=== PATIENT | male | born 1980 | race American Indian/Alaskan Native ===

== ENCOUNTER 2016-10-12 08:07 | Emergency (ER) | payer MEDICAID ==
[2016-10-12 08:40] VITALS: BP 151/104
[2016-10-12] MEDS ORDERED: TORADOL IM ONE (11:04)
--- NOTE | 2016-10-12 11:09 | Emergency Department Report ---
HPI - General Chief Complaint: Neck Pain/Injury Time Seen by Provider: 10/12/16 11:04 - HPI HPI: 36-year-old obese -Honduran male comes in with complaint of neck pain and lower back pain 2-3 days. Patient voices and using Motrin and heat with minimal relief. Patient reports that he is out of his meds which her trauma and all which has really helped in the past. Patient reports that he is waiting for an appointment at the pain clinic he has been following up with his primary care provider and they're looking to refer him in 2 months to a pain management. 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 He denies any trauma to his back. He reports is not able to sleep much. He is aware that his blood pressure is elevated today but reports he's been taken his lisinopril and amlodipine and contributes to elevation due to pain. ED Past Medical Hx - Past Medical History Hx Hypertension: Yes Additional medical history: MORBID OBESITY. CHRONIC PAIN - Surgical History Past Surgical History?: No - Social History Smoking Status: Former Smoker Substance Use Type: Prescribed - Medications Home Medications: Home Medications Medication Instructions Recorded Confirmed Last Taken Type methOCARBAMOL [Robaxin TAB] 500 mg PO BID #30 tab 10/12/16 Unknown Rx traMADol [Ultram 50 MG tab] 50 mg PO Q6HR PRN #28 tablet 10/12/16 Unknown Rx ED Review of Systems ROS: Stated complaint: BACK/NECK PAIN Other details as noted in HPI Constitutional: denies: chills, fever Eyes: denies: eye pain, eye discharge, vision change ENT: denies: ear pain, throat pain Respiratory: denies: cough, shortness of breath, wheezing Cardiovascular: denies: chest pain, palpitations Endocrine: no symptoms reported Gastrointestinal: denies: abdominal pain, nausea, diarrhea Genitourinary: denies: urgency, dysuria Musculoskeletal: back pain, arthralgia, myalgia Skin: denies: rash, lesions Neurological: denies: headache, weakness, paresthesias Psychiatric: denies: anxiety, depression Hematological/Lymphatic: denies: easy bleeding, easy bruising Physical Exam - Physical Exam Vital Signs: Vital Signs 10/12/16 08:36 Temperature 98.3 F Pulse Rate 66 Respiratory 17 Rate Blood Pressure 151/104 O2 Sat by Pulse 100 Oximetry Physical Exam: GENERAL: Alert and oriented x3, no apparent distress, Normal Gait, atraumatic. HEAD: Head is normocephalic and a-traumatic. EYES: Extra ocular muscles are intact. Pupils are equal, round, and reactive to light and accommodation. MOUTH:Mouth is well hydrated and without lesions. Tonsils nonerythematous or swollen, Uvula midline, Tongue not elevated. Mucous membranes are moist. Posterior pharynx clear, no exudate or lesions. Patent airways. NECK: Supple. Non edematous, No carotid bruits. No lymphadenopathy or thyromegaly. Tenderness to the paracervical area LUNGS: Symetrical with respiration, No wheezing, no rales or crackles, CTAB. HEART: S1, S2 present, regular rate and rhythm without murmur, no rubs, no gallops. ABDOMEN: Obese abdomen No organomegaly was noted,Positive bowel sounds, soft, and non-distended. . Nontender to palpation on all Quadrants, NO CVA tenderness. EXTREMITIES/MUSCULOSKELETAL: No cyanosis, clubbing, rash, lesions or edema. Full ROM bilaterally. UE/LE Pulses 2+ bilaterally. LE and UE 5+ strength bilaterally lumbar paraspinal tenderness with muscle spasms. NEUROLOGIC: No focal Deficit, Cranial nerves II through XII are grossly intact. No loss of sensation, No facial droop, PSYCHIATRIC: Mood is congruent with affect, denies suicidal or homicidal ideations. SKIN: Warm and dry, No lesions, No ulceration or induration present ED Course Vital Signs 10/12/16 08:36 Temperature 98.3 F Pulse Rate 66 Respiratory 17 Rate Blood Pressure 151/104 O2 Sat by Pulse 100 Oximetry - Reevaluation(s) Reevaluation #1: 10/12/16 11:40 Patient reports that he feels much better after having the Toradol injection ED Medical Decision Making - Medical Decision Making Patient has been evaluated by this provider in fast track. Discussed the patient will give him a Toradol injection. Encouraged him to continue with his blood pressure medication we would discharge patient on tramadol 50 mg 1 tablet by mouth 3 times a day we'll dispense 15. We will refer patient to pain management. Critical care attestation.: If time is entered above; I have spent that time in minutes in the direct care of this critically ill patient, excluding procedure time. ED Disposition Clinical Impression: Back pain at L4-L5 level, Cervicalgia Disposition: DISCHARGED TO HOME OR SELFCARE Is pt being admited?: No Does the pt Need Aspirin: No Condition: Stable Instructions: Cervical Sprain (ED), Chronic Back Pain (ED) Additional Instructions: He is take pain medication as prescribed. I highly recommend free to follow-up with one of the pain clinic that I have listed below for further management of her chronic back pain. I would discharge also on a muscle relaxant to see if that alleviates some of the pain. Prescriptions: methOCARBAMOL [Robaxin TAB] 500 mg PO BID #30 tab traMADol [Ultram 50 MG tab] 50 mg PO Q6HR PRN #28 tablet PRN Reason: Pain Referrals: PRIMARY CARE [Primary Care Provider] - 3-5 Days PAIN CARE, [facility] [Provider Group] - 3-5 Days PAIN SPECIALIST [facility] [Provider Group] - 3-5 Days Forms: Work/School Release Form(ED)
== END 2016-10-12 11:47 | disposition home or self-care (01) ==
LOC: ED 08:07
DX: M54.5 Low back pain (principal); M54.2 Cervicalgia; I10 Essential (primary) hypertension; G89.29 Other chronic pain; Z87.891 Personal history of nicotine dependence
CPT/HCPCS: 96372; 99282; J1885

== ENCOUNTER 2020-05-27 13:50 | Emergency (ER) | payer MEDICAID ==
[2020-05-27] MEDS ORDERED: LISINOPRIL 20 MG TAB PO ONE (16:17)
[2020-05-27] MEDS ORDERED: amLODIPine 5 MG TAB PO ONE (16:17)
[2020-05-27] MEDS ORDERED: traMADol 50 MG TAB PO ONE (16:17)
[2020-05-27] MEDS ORDERED: ACETAMINOPHEN 325 MG TAB PO ONE (16:17)
--- NOTE | 2020-05-27 17:09 | Emergency Department Report ---
ED Fall HPI - General Chief Complaint: Fall Stated Complaint: BACK PAIN Time Seen by Provider: 05/27/20 16:16 Source: patient Mode of arrival: Ambulatory - History of Present Illness Initial Comments: Patient is a 39-year-old male presents emergency room complaints of a fall that occurred just prior to arrival. Patient states that he was at work on a [employer] picker and fell off of it. He states he was approximately 3 feet off the ground. He states that he did hit his head and had a very brief episode of loss of consciousness. He is complaining of headache, neck pain, middle back pain, lower back pain. He denies any vomiting, vision changes, numbness, weakness, bowel or bladder incontinence. He has a past medical history of hypertension taking his medications in 2 weeks. He is supposed to be taking lisinopril hydrochlorothiazide and amlodipine and has not taken either one in two weeks. He denies any medication allergies. - Related Data Previous Rx's Medication Instructions Recorded Last Taken Type methOCARBAMOL [Robaxin TAB] 500 mg PO BID #30 tab 10/12/16 Unknown Rx traMADoL [Ultram 50 MG tab] 50 mg PO Q6HR PRN #28 tablet 10/12/16 Unknown Rx Acetaminophen [Tylenol] 650 mg PO Q8HR PRN #20 capsule 05/27/20 Unknown Rx Lisinopril/Hydrochlorothiazide 1 tab PO QDAY #30 tab 05/27/20 Unknown Rx [Zestoretic 20-12.5 mg] amLODIPine 10 mg PO DAILY #30 tab 05/27/20 Unknown Rx methOCARBAMOL [Robaxin TAB] 500 mg PO BID PRN #14 tablet 05/27/20 Unknown Rx Allergies Allergy/AdvReac Type Severity Reaction Status Date / Time mushroom Allergy Swelling Verified 10/12/16 08:34 MAYONAISE AdvReac Rash Uncoded 10/12/16 08:34 ED Review of Systems ROS: Stated complaint: BACK PAIN Other details as noted in HPI Comment: All other systems reviewed and negative ED Past Medical Hx - Past Medical History Previous Medical History?: Yes Hx Hypertension: Yes Additional medical history: MORBID OBESITY. CHRONIC PAIN - Surgical History Past Surgical History?: Yes Hx Cholecystectomy: Yes - Social History Smoking Status: Former Smoker Substance Use Type: Prescribed - Medications Home Medications: Home Medications Medication Instructions Recorded Confirmed Last Taken Type methOCARBAMOL [Robaxin TAB] 500 mg PO BID #30 tab 10/12/16 Unknown Rx traMADoL [Ultram 50 MG tab] 50 mg PO Q6HR PRN #28 tablet 10/12/16 Unknown Rx Acetaminophen [Tylenol] 650 mg PO Q8HR PRN #20 capsule 05/27/20 Unknown Rx Lisinopril/Hydrochlorothiazide 1 tab PO QDAY #30 tab 05/27/20 Unknown Rx [Zestoretic 20-12.5 mg] amLODIPine 10 mg PO DAILY #30 tab 05/27/20 Unknown Rx methOCARBAMOL [Robaxin TAB] 500 mg PO BID PRN #14 tablet 05/27/20 Unknown Rx ED Physical Exam - General Limitations: No Limitations General appearance: alert, in no apparent distress - Head Head exam: Present: atraumatic, normocephalic - Eye Eye exam: Present: normal appearance, PERRL, EOMI. Absent: periorbital swelling, periorbital tenderness Pupils: Present: normal accommodation - ENT ENT exam: Present: mucous membranes moist - Neck Neck exam: Present: normal inspection, tenderness (bilateral C-spine paraspinal muscular ttp, no midline C-spine ttp, no step offs, no deformities), full ROM - Respiratory Respiratory exam: Present: normal lung sounds bilaterally. Absent: respiratory distress, wheezes, rales, rhonchi, stridor, chest wall tenderness, accessory muscle use, decreased breath sounds, prolonged expiratory - Cardiovascular Cardiovascular Exam: Present: regular rate, normal rhythm, normal heart sounds. Absent: systolic murmur, diastolic murmur, rubs, gallop - Extremities Exam Extremities exam: Present: normal inspection, full ROM, normal capillary refill. Absent: tenderness, pedal edema, joint swelling, calf tenderness - Back Exam Back exam: Present: normal inspection, full ROM, paraspinal tenderness (bilateral T-spine and L-spine paraspinal muscular ttp, no midline C-spine, T-spine or L-spine ttp, no step offs, no deformities). Absent: vertebral tenderness - Neurological Exam Neurological exam: Present: alert, oriented X3, CN II-XII intact, normal gait. Absent: motor sensory deficit - Psychiatric Psychiatric exam: Present: normal affect, normal mood - Skin Skin exam: Present: warm, dry, intact ED Course Vital Signs 12/15/20 12/15/20 12/15/20 14:34 16:36 16:37 Temperature 99.3 F Pulse Rate 96 H Respiratory 18 Rate Blood Pressure 193/123 193/123 Blood Pressure 193/136 [Right] O2 Sat by Pulse 98 Oximetry 05/27/20 19:22 Temperature Pulse Rate Respiratory Rate Blood Pressure Blood Pressure 195/148 [Right] O2 Sat by Pulse Oximetry ED Medical Decision Making - Radiology Data Radiology results: report reviewed Ordering Physician: MARLI MISHRA Date of Service: 05/27/20 Procedure(s): CT cervical spine wo con Accession Number(s): [id number] cc: MARLI MISHRA CT CERVICAL SPINE WITHOUT CONTRAST INDICATION: Neck pain after trauma. TECHNIQUE: Axial CT images of the spine were obtained. Sagittal and coronal reformatted images were produced. All CT scans at this location are performed using CT dose reduction for ALARA by means of automated exposure control. COMPARISON: None available. FINDINGS: ACUTE FRACTURE(S) OR SUBLUXATION: None. SPINAL DEGENERATIVE CHANGES: There is mild degenerative disc disease at C3-4, C4-5, C5-6, and C6-7 with small anterior osteophytes. PARASPINAL SOFT TISSUES: No soft tissue swelling or other acute abnormalities. ADDITIONAL FINDINGS: No significant additional findings. IMPRESSION: 1. No acute fracture or subluxation in the spine in neutral position. Signer Name: Ryan Doshi MD Signed: 05/27/2020 5:33 PM Workstation Name: [id number] Transcribed By: KAR Dictated By: Ryan Doshi MD Electronically Authenticated By: Ryan Doshi MD Signed Date/Time: 05/27/201732 DD/ 31 TD/TT: Ordering Physician: MARLI MISHRA Date of Service: 05/27/20 Procedure(s): CT lumbar spine wo con Accession Number(s): [id number] cc: MARLI MISHRA CT LUMBAR SPINE WITHOUT CONTRAST INDICATION: Back pain after trauma. TECHNIQUE: Axial CT images of the spine were obtained. Sagittal and coronal reformatted images were produced. All CT scans at this location are performed using CT dose reduction for ALARA by means of automated exposure control. COMPARISON: None available. FINDINGS: ACUTE FRACTURE(S) OR SUBLUXATION: None. SPINAL DEGENERATIVE CHANGES: No significant degenerative changes. PARASPINAL SOFT TISSUES: No soft tissue swelling or other acute abnormalities. ADDITIONAL FINDINGS: No significant additional findings. IMPRESSION: 1. No acute fracture or subluxation in the spine in neutral position. Signer Name: Ryan Doshi MD Signed: 05/27/2020 5:38 PM Workstation Name: [id number] Transcribed By: KAR Dictated By: Ryan Doshi MD Electronically Authenticated By: Ryan Doshi MD Signed Date/Time: 05/27/201737 DD/ 36 TD/TT: Ordering Physician: MARLI MISHRA Date of Service: 05/27/20 Procedure(s): CT thoracic spine wo con Accession Number(s): [id number] cc: MARLI MISHRA . CT thoracic spine wo con INDICATION / CLINICAL INFORMATION: 39 years Male; fall off machine at work, BOWDEN, neck pain/back pain. TECHNIQUE: Axial CT images of the thoracic spine were obtained. Sagittal and coronal reformatted images were produced. All CT scans at this location are performed using CT dose reduction for ALARA by means of automated exposure control. COMPARISON: None available. FINDINGS: POST-SURGICAL CHANGES: None. ALIGNMENT: No significant abnormality. VERTEBRAE: No signs of fracture. Vertebral bodies are grossly normal in height throughout. Anterior spondylosis seen predominantly in the midthoracic region at various levels. Costovertebral, costotransverse, and facet joints demonstrate mild, scattered areas of degenerative change. Overall, no significant foraminal narrowing appreciated. INTERVERTEBRAL DISCS: No significant abnormality. PARASPINAL SOFT TISSUES: No significant abnormality. ADDITIONAL FINDINGS: Multiple small, peripheral blebs noted. IMPRESSION: 1. No signs of acute bony trauma to the thoracic spine. Signer Name: Maximo Hawk MD, III Signed: 05/27/2020 5:38 PM Workstation Name: [id number] Transcribed By: Dictated By: Maximo Hawk MD Electronically Authenticated By: Maximo Hawk MD Signed Date/Time: 05/27/201737 DD/ 32 TD/TT: Ordering Physician: MARLI MISHRA Date of Service: 05/27/20 Procedure(s): CT head/brain wo con Accession Number(s): [id number] cc: MARLI MISHRA CT head/brain wo con INDICATION / CLINICAL INFORMATION: 39 years Male; fall off machine at work, BOWDEN, neck pain/back pain. TECHNIQUE: Routine CT head without contrast. All CT scans at this location are performed using CT dose reduction for ALARA by means of automated exposure control. Motion artifact present. COMPARISON: None. FINDINGS: BRAIN / INTRACRANIAL CONTENTS: No acute hemorrhage, mass effect, midline shift, hydrocephalus, or acute, large territorial infarct. No signs of significant atrophy or chronic infarct. No significant white matter abnormality seen. CRANIOCERVICAL JUNCTION: No significant abnormality. ORBITS: No significant abnormality of visualized orbits. SINUSES / MASTOIDS: No significant abnormality in the visualized paranasal sinuses or mastoid air cells. ADDITIONAL FINDINGS: None. IMPRESSION: 1. No focal mass, hemorrhage, hydrocephalus, or acute, large territorial infarct on this study limited by motion. Signer Name: Maximo Hawk MD, III Signed: 05/27/2020 5:33 PM Workstation Name: [id number] Transcribed By: HR Dictated By: Maximo Hawk MD Electronically Authenticated By: Maximo Hawk MD Signed Date/Time: 05/27/201732 DD/ 30 TD/TT: - Medical Decision Making Patient is a 39-year-old male presents emergency room complaints of a fall that occurred just prior to arrival. 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 He states he was approximately 3 feet off the ground. He states that he did hit his head and had a very brief episode of loss of consciousness. He is complaining of headache, neck pain, middle back pain, lower back pain. He denies any vomiting, vision changes, numbness, weakness, bowel or bladder incontinence. He has a past medical history of hypertension taking his medications in 2 weeks. He is supposed to be taking lisinopril hyd rochlorothiazide and amlodipine and has not taken either one in two weeks. He denies any medication allergies. Vitals with elevated blood pressure, otherwise normal, elevation in blood pressure is due to noncompliance with medication regimen, he has not taken his blood pressure medication in 2 weeks. Patient is not presenting with symptoms of his blood pressure, he did not realize his blood pressure was elevated, he presents due to a fall. Patient was given his home medications. The up-to-date medical literature does not recommend emergently lowering elevated blood pressure. on exam: bilateral C-spine paraspinal muscular ttp, no midline C-spine ttp, no step offs, no deformities, bilateral T-spine and L-spine paraspinal muscular ttp, no midline C-spine, T-spine or L-spine ttp, no step offs, no deformities, no focal neuro deficits. CT cervical spine:1. No acute fracture or subluxation in the spine in neutral position. CT lumbar spine: 1. No acute fracture or subluxation in the spine in neutral position. CT thoracic spine: 1. No signs of acute bony trauma to the thoracic spine. CT head: 1. No focal mass, hemorrhage, hydrocephalus, or acute, large territorial infarct on this study limited by motion. Patient given medications while in the ED as he did not drive and symptoms completely improved and feel he is feeling much better ready to go home. He was observed in the ED without any complications. He is ambulatory without difficulty. He has no focal neuro deficits. Patient given prescription for Tylenol and Robaxin. Patient also given a refill of his home medications. advised patient Please take medication as prescribed as needed. Do not drive or operate machinery while taking muscle x-ray. May use ice pack, heating pad, rest, epsom salt bath. Follow-up with [facility] doctor. Return to emergency room for any worsening symptoms. Please take your blood pressure medication as prescribed. Increase your water intake. Eat a low-sodium diet. Incorporate 30 to 60 minutes of daily exercise. Consider weight management. Return to emergency room for new or worsening symptoms. Critical care attestation.: If time is entered above; I have spent that time in minutes in the direct care of this critically ill patient, excluding procedure time. ED Disposition Clinical Impression: Elevated blood pressure reading, Non compliance w medication regimen Fall Qualifiers: Encounter type: initial encounter Qualified Code(s): W19.XXXA - Unspecified fall, initial encounter Minor head injury with loss of consciousness Qualifiers: Encounter type: initial encounter Qualified Code(s): S06.9X9A - Unspecified intracranial injury with loss of consciousness of unspecified duration, initial encounter Cervical strain Qualifiers: Encounter type: initial encounter Qualified Code(s): S16.1XXA - Strain of muscle, fascia and tendon at neck level, initial encounter Back strain Qualifiers: Encounter type: initial encounter Qualified Code(s): S39.012A - Strain of muscle, fascia and tendon of lower back, initial encounter Disposition: TO HOME OR SELFCARE Is pt being admited?: No Does the pt Need Aspirin: No Condition: Stable Instructions: Head Injury, Adult, Muscle Strain, [id number], Low-Sodium Eating Plan, Hypertension, Adult Additional Instructions: Please take medication as prescribed as needed. Do not drive or operate machinery while taking muscle x-ray. May use ice pack, heating pad, rest, epsom salt bath. Follow-up with primary care doctor. Return to emergency room for any worsening symptoms. Please take your blood pressure medication as prescribed. Increase your water intake. Eat a low-sodium diet. Incorporate 30 to 60 minutes of daily exercise. Consider weight management. Return to emergency room for new or worsening symptoms. Prescriptions: amLODIPine 10 mg PO DAILY #30 tab methOCARBAMOL [Robaxin TAB] 500 mg PO BID PRN #14 tablet PRN Reason: pain Acetaminophen [Tylenol] 650 mg PO Q8HR PRN #20 capsule PRN Reason: pain Lisinopril/Hydrochlorothiazide [Zestoretic 20-12.5 mg] 1 tab PO QDAY #30 tab Referrals: PRIMARY MD HARRIET [Primary Care Provider] - 2-3 Days ISAAK ARCHIBALD MD [Staff Physician] - 2-[address] [facility] [Provider Group] - 2-3 Days Forms: Work/School Release Form(ED) Time of Disposition: 17:55 Print Language: MONTSERRATIAN
--- NOTE | 2020-05-27 17:37 | Cat Scan Report ---
CT head/brain wo con INDICATION / CLINICAL INFORMATION: 39 years Male; fall off machine at work, BOWDEN, neck pain/back pain. TECHNIQUE: Routine CT head without contrast. All CT scans at this location are performed using CT dos e reduction for ALARA by means of automated exposure control. Motion artifact present. COMPARISON: None. FINDINGS: BRAIN / INTRACRANIAL CONTENTS: No acute hemorrhage, mass effect, midline shift, hydrocephalus, or acu te, large territorial infarct. No signs of significant atrophy or chronic infarct. No significant whi te matter abnormality seen. CRANIOCERVICAL JUNCTION: No significant abnormality. ORBITS: No significant abnormality of visualized orbits. SINUSES / MASTOIDS: No significant abnormality in the visualized paranasal sinuses or mastoid air javid ls. ADDITIONAL FINDINGS: None. IMPRESSION: 1. No focal mass, hemorrhage, hydrocephalus, or acute, large territorial infarct on this study limite d by motion. Signer Name: Maximo Hawk MD, III Signed: 05/27/2020 5:33 PM Workstation Name: [id number]
--- NOTE | 2020-05-27 17:38 | Cat Scan Report ---
CT CERVICAL SPINE WITHOUT CONTRAST INDICATION: Neck pain after trauma. TECHNIQUE: Axial CT images of the spine were obtained. Sagittal and coronal reformatted images were produced. Al l CT scans at this location are performed using CT dose reduction for ALARA by means of automated exp osure control. COMPARISON: None available. FINDINGS: ACUTE FRACTURE(S) OR SUBLUXATION: None. SPINAL DEGENERATIVE CHANGES: There is mild degenerative disc disease at C3-4, C4-5, C5-6, and C6-7 wi th small anterior osteophytes. PARASPINAL SOFT TISSUES: No soft tissue swelling or other acute abnormalities. ADDITIONAL FINDINGS: No significant additional findings. IMPRESSION: 1. No acute fracture or subluxation in the spine in neutral position. Signer Name: Ryan Doshi MD Signed: 05/27/2020 5:33 PM Workstation Name: [id number]
--- NOTE | 2020-05-27 17:43 | Cat Scan Report ---
CT LUMBAR SPINE WITHOUT CONTRAST INDICATION: Back pain after trauma. TECHNIQUE: Axial CT images of the spine were obtained. Sagittal and coronal reformatted images were produced. Al l CT scans at this location are performed using CT dose reduction for ALARA by means of automated exp osure control. COMPARISON: None available. FINDINGS: ACUTE FRACTURE(S) OR SUBLUXATION: None. SPINAL DEGENERATIVE CHANGES: No significant degenerative changes. PARASPINAL SOFT TISSUES: No soft tissue swelling or other acute abnormalities. ADDITIONAL FINDINGS: No significant additional findings. IMPRESSION: 1. No acute fracture or subluxation in the spine in neutral position. Signer Name: Ryan Doshi MD Signed: 05/27/2020 5:38 PM Workstation Name: [id number]
--- NOTE | 2020-05-27 17:43 | Cat Scan Report ---
. CT thoracic spine wo con INDICATION / CLINICAL INFORMATION: 39 years Male; fall off machine at work, BOWDEN, neck pain/back pain. TECHNIQUE: Axial CT images of the thoracic spine were obtained. Sagittal and coronal reformatted images were pr oduced. All CT scans at this location are performed using CT dose reduction for ALARA by means of aut omated exposure control. COMPARISON: None available. FINDINGS: POST-SURGICAL CHANGES: None. ALIGNMENT: No significant abnormality. VERTEBRAE: No signs of fracture. Vertebral bodies are grossly normal in height throughout. Anterior s pondylosis seen predominantly in the midthoracic region at various levels. Costovertebral, costotransverse, and facet joints demonstrate mild, scattered areas of degenerative c hange. Overall, no significant foraminal narrowing appreciated. INTERVERTEBRAL DISCS: No significant abnormality. PARASPINAL SOFT TISSUES: No significant abnormality. ADDITIONAL FINDINGS: Multiple small, peripheral blebs noted. IMPRESSION: 1. No signs of acute bony trauma to the thoracic spine. Signer Name: Maximo Hawk MD, III Signed: 05/27/2020 5:38 PM Workstation Name: [id number]
[2020-05-27 19:23] VITALS: BP 195/148
== END 2020-05-27 19:35 | disposition home or self-care (01) ==
LOC: ED 13:50
DX: S06.9X9A Unspecified intracranial injury with loss of consciousness of unspecified duration, initial encounter (principal); S16.1XXA Strain of muscle, fascia and tendon at neck level, initial encounter; S39.012A Strain of muscle, fascia and tendon of lower back, initial encounter; W19.XXXA Unspecified fall, initial encounter; Y93.89 Activity, other specified; Y92.89 Other specified places as the place of occurrence of the external cause; Y99.8 Other external cause status
CPT/HCPCS: 70450; 72125; 72128; 72131; 99283

== ENCOUNTER 2021-08-28 06:07 | Emergency (ER) | payer MEDICAID ==
[2021-08-28] MEDS ORDERED: methylPREDNISolone Sod Succinate 125 MG/2 ML INJ IV ONE (07:13)
[2021-08-28] MEDS ORDERED: IPRATROPIUM/ALBUTEROL SULFATE 3 ML AMPUL.NEB IH ONE (07:13)
[2021-08-28] MEDS ORDERED: BENZONATATE 100 MG CAP PO ONE (07:14)
--- NOTE | 2021-08-28 07:17 | Emergency Department Report ---
ED General Adult HPI - General Chief complaint: Dyspnea/Respdistress Stated complaint: SOB Time Seen by Provider: 08/28/21 07:06 Source: EMS Mode of arrival: Stretcher Limitations: No Limitations - History of Present Illness Initial comments: Patient presents to emergency department chief complaint of shortness of breath. Patient states that this morning upon awakening he had a difficult time breathing. Patient states he has a history of bronchitis and this feels like his typical bronchitis flareup. Patient denies chest pain or abdominal pain. P atient received a breathing treatment in route via EMS. Patient also endorses issues with swelling of his legs but denies orthopnea -: Sudden Severity scale (0 -10): 0 Consistency: constant Improves with: none Worsens with: none Associated Symptoms: denies other symptoms Treatments Prior to Arrival: none - Related Data Previous Rx's Medication Instructions Recorded Last Taken Type Promethazine [Phenergan] 25 mg PO Q6HR PRN #10 tab 05/18/21 Unknown Rx Valsartan 80 mg PO DAILY #30 tablet 05/18/21 Unknown Rx amLODIPine 5 mg PO DAILY #30 tab 05/18/21 Unknown Rx Furosemide [Lasix] 20 mg PO QDAY #5 tablet 08/28/21 Unknown Rx Allergies Allergy/AdvReac Type Severity Reaction Status Date / Time No Known Allergies Allergy Verified 05/18/21 02:18 ED Review of Systems ROS: Stated complaint: SOB Other details as noted in HPI Comment: All other systems reviewed and negative Constitutional: denies: chills, fever Eyes: denies: eye pain, eye discharge, vision change ENT: denies: ear pain, throat pain Respiratory: denies: cough, shortness of breath, wheezing Cardiovascular: denies: chest pain, palpitations Endocrine: no symptoms reported Gastrointestinal: denies: abdominal pain, nausea, diarrhea Genitourinary: denies: urgency, dysuria Musculoskeletal: denies: back pain, joint swelling, arthralgia Skin: denies: rash, lesions Neurological: denies: headache, weakness, paresthesias Psychiatric: denies: anxiety, depression Hematological/Lymphatic: denies: easy bleeding, easy bruising ED Past Medical Hx - Past Medical History Hx Hypertension: Yes - Surgical History Additional Surgical History: LOWER BACK - Social History Smoking Status: Never Smoker Substance Use Type: None - Medications Home Medications: Home Medications Medication Instructions Recorded Confirmed Last Taken Type Promethazine [Phenergan] 25 mg PO Q6HR PRN #10 tab 05/18/21 Unknown Rx Valsartan 80 mg PO DAILY #30 tablet 05/18/21 Unknown Rx amLODIPine 5 mg PO DAILY #30 tab 05/18/21 Unknown Rx Furosemide [Lasix] 20 mg PO QDAY #5 tablet 08/28/21 Unknown Rx ED Physical Exam - General Limitations: No Limitations General appearance: alert, in no apparent distress - Head Head exam: Present: atraumatic, normocephalic - Eye Eye exam: Present: normal appearance, PERRL, EOMI - ENT ENT exam: Present: mucous membranes moist - Neck Neck exam: Present: normal inspection - Respiratory Respiratory exam: Present: normal lung sounds bilaterally, wheezes - Cardiovascular Cardiovascular Exam: Present: regular rate, normal rhythm. Absent: systolic murmur, diastolic murmur, rubs, gallop - GI/Abdominal GI/Abdominal exam: Present: soft, normal bowel sounds. Absent: distended, tenderness - Rectal Rectal exam: Present: deferred - Extremities Exam Extremities exam: Present: normal inspection - Back Exam Back exam: Present: normal inspection - Neurological Exam Neurological exam: Present: alert, oriented X3, CN II-XII intact. Absent: motor sensory deficit - Psychiatric Psychiatric exam: Present: normal affect, normal mood - Skin Skin exam: Present: warm, dry, intact, normal color. Absent: rash ED Course Vital Signs 08/28/21 07:04 Temperature 98.9 F Pulse Rate 90 Respiratory 16 Rate Blood Pressure 182/153 [Right] O2 Sat by Pulse 97 Oximetry ED Medical Decision Making - Lab Data Result diagrams: 08/28/21 07:54 08/28/21 07:50 Lab Results 08/28/21 08/28/21 Range/Units 07:50 07:54 WBC 6.1 (4.5-11.0) K/mm3 RBC 4.62 (3.65-5.03) M/mm3 Hgb 13.2 (11.8-15.2) gm/dl Hct 41.6 (35.5-45.6) % MCV 90 (84-94) fl MCH 29 (28-32) pg MCHC 32 (32-34) % RDW 15.6 H (13.2-15.2) % Plt Count 234 (140-440) K/mm3 Lymph % (Auto) 15.0 (13.4-35.0) % Jennings % (Auto) 10.9 H (0.0-7.3) % Eos % (Auto) 10.4 H (0.0-4.3) % Baso % (Auto) 0.9 (0.0-1.8) % Lymph # (Auto) 0.9 L (1.2-5.4) K/mm3 Jennings # (Auto) 0.7 (0.0-0.8) K/mm3 Eos # (Auto) 0.6 H (0.0-0.4) K/mm3 Baso # (Auto) 0.1 (0.0-0.1) K/mm3 Seg Neutrophils % 62.8 (40.0-70.0) % Seg Neutrophils # 3.9 (1.8-7.7) K/mm3 Sodium 136 L (137-145) mmol/L Potassium 4.7 (3.6-5.0) mmol/L Chloride 100.6 (98-107) mmol/L Carbon Dioxide 27 (22-30) mmol/L Anion Gap 13 mmol/L BUN 17 (9-20) mg/dL Creatinine 1.2 (0.8-1.3) mg/dL Estimated GFR > 60 ml/min BUN/Creatinine Ratio 14 % Glucose 90 (75-100) mg/dL Calcium 9.4 (8.4-10.2) mg/dL NT-Pro-B Natriuret Pep 1646 H (0-450) pg/mL - EKG Data -: EKG Interpreted by Ks EKG shows normal: sinus rhythm - EKG Data 08/28/21 10:05 EKG shows rate 85 bpm with left atrial enlargement early repole - Radiology Data Radiology results: report reviewed - Medical Decision Making Results discussed with patient and need to follow-up with his primary care physician and a fast food team member for further evaluation Critical care attestation.: If time is entered above; I have spent that time in minutes in the direct care of this critically ill patient, excluding procedure time. ED Disposition Clinical Impression: Interstitial edema Disposition: HOME / SELF CARE / HOMELESS Is pt being admited?: No Does the pt Need Aspirin: No Condition: Stable Instructions: Peripheral Edema Additional Instructions: return if worse Prescriptions: Furosemide [Lasix] 20 mg PO QDAY #5 tablet Referrals: ISAAK ARCHIBALD MD [Primary Care Provider] - 3-5 Days Time of Disposition: 10:06
[2021-08-28 08:28] LABS: Basophils # (Auto) 0.1 K/mm3 (0.0-0.1); Basophils % (Auto) 0.9 % (0.0-1.8); Eosinophils # (Auto) 0.6 K/mm3 (0.0-0.4); Eosinophils % (Auto) 10.4 % (0.0-4.3); Hematocrit 41.6 % (35.5-45.6); Hemoglobin 13.2 gm/dl (11.8-15.2); Lymphocytes # (Auto) 0.9 K/mm3 (1.2-5.4); Mean Corpuscular HGB Conc 32 % (32-34); Mean Corpuscular Volume 90 fl (84-94); Monocytes # (Auto) 0.7 K/mm3 (0.0-0.8); Monocytes % (Auto) 10.9 % (0.0-7.3); Platelet Count 234 K/mm3 (140-440); Red Blood Count 4.62 M/mm3 (3.65-5.03); Red Cell Distribution Width 15.6 % (13.2-15.2)
--- NOTE | 2021-08-28 08:32 | XRay Report ---
CHEST 1 VIEW INDICATION: sob. COMPARISON: None FINDINGS: SUPPORT DEVICES: None. HEART: Borderline cardiomegaly. LUNGS/PLEURA: Mild interstitial edema. No appreciable effusion. ADDITIONAL FINDINGS: None. IMPRESSION: 1. Mild edema. Signer Name: Homero Wilhelm MD Signed: 08/28/2021 8:28 AM Workstation Name: [id number]
[2021-08-28 08:52] LABS: BUN/Creatinine Ratio 14; Blood Urea Nitrogen 17 mg/dL (9-20); Calcium 9.4 mg/dL (8.4-10.2); Hemolysis Index 6
[2021-08-28] MEDS ORDERED: FUROSEMIDE 20 MG TAB PO ONE ×2 (09:59→10:07)
[2021-08-28 11:19] VITALS: BP 179/106
--- NOTE | 2021-08-31 08:31 | Electrocardiograph Report ---
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
== END 2021-08-28 11:21 | disposition home or self-care (01) ==
LOC: ED 06:07 → MERGE 06:07 → ED 11:21
DX: R60.9 Edema, unspecified (principal); I10 Essential (primary) hypertension
CPT/HCPCS: 36415; 71045; 80048; 83880; 85025; 93005; 94640; 96374; 99284; J2930